=== PATIENT | female | born 1985 | race Caucasian/White ===

== ENCOUNTER 2019-01-11 13:21 | Emergency (ER) | payer BC, OTHER ==
[~2019-01-11] VITALS: Ht 160 cm; Wt 66.8 kg
[~2019-01-11 13:21] MED LIST: PROC5TAB56 PO
[2019-01-11 13:38] VITALS: BP 107/79
[2019-01-11] MEDS ORDERED: AMOX-580 PO (14:36)
== END 2019-01-11 14:48 | disposition home or self-care (01) ==
LOC: ER 13:21
DX: J32.1 Chronic frontal sinusitis (principal); J32.0 Chronic maxillary sinusitis; Z79.899 Other long term (current) drug therapy
CPT/HCPCS: 99283

== ENCOUNTER 2022-06-21 07:51 | Emergency (ER) | payer BC, OTHER ==
[~2022-06-21] VITALS: Ht 160 cm; Wt 63.6 kg
[2022-06-21 08:03] VITALS: BP 118/80
== END 2022-06-21 12:07 | disposition left against medical advice (07) ==
LOC: ER 07:52
DX: G43.909 Migraine, unspecified, not intractable, without status migrainosus (principal); Z53.21 Procedure and treatment not carried out due to patient leaving prior to being seen by health care provider
CPT/HCPCS: 99283